=== PATIENT | male | born 1940 | race Caucasian/White ===

== ENCOUNTER 2017-07-01 11:28 | Observation (INO) | payer MEDICARE ==
[2017-07-01 12:41] LABS: Hemoglobin 16.3 g/dL (14.0-18.0); Mean Corpuscular HGB CONC 33.9 g/dL (32.0-36.0); Mean Corpuscular Hemoglobin 31.1 pg (27.0-31.0); Mean Corpuscular Volume 91.8 fl (80.0-94.0); Mean Platelet Volume 9.5 fL (7.4-10.4); Platelet Count 156 thou/uL (130-400); RBC Distribution Width 13.3 % (11.5-14.5); Red Blood Cell (RBC) Count 5.23 mill/uL (4.70-6.10); White Blood Cell (WBC) Count 12.8 thou/uL (4.8-10.8)
[2017-07-01] MEDS ORDERED: Morphine 4 MG/ML VIAL ONE ×2 (12:47→15:00)
[2017-07-01 12:50] LABS: INR-International Normal Ratio 1.7; Prothrombin Time 20.1 SEC (12.0-14.7)
[2017-07-01 12:51] LABS: PTT 42.1 SEC (22.9-36.1)
[2017-07-01 13:03] LABS: Band 1 % (5-11); Lymphocytes 13 % (21-51); MDiff Complete? YES; Metamyelocyte 1 % (0-0); Monocytes 4 % (0-10); Neutrophil 71 % (42-75); Reactive Lymphocytes 9 % (0-10)
[2017-07-01 13:04] LABS: ALT (SGPT) 29 U/L (8-55); AST (SGOT) 30 U/L (5-34); Albumin 4.3 g/dL (3.4-4.8); Alkaline Phosphatase 90 U/L (40-150); Anion Gap 15 mmol/L (10-20); BUN (Urea Nitrogen) 18 mg/dL (8.4-25.7); Bilirubin, Total 1.2 mg/dL (0.2-1.2); CK (CPK) 71 U/L (30-200); Calc. Creatinine Clearance 0 mL/min (70-130); Calcium 10.3 mg/dL (7.8-10.44); Carbon Dioxide 25 mmol/L (23-31); Chloride 97 mmol/L (98-107); Estimated GFR-MDRD 78; Globulin 3.7 g/dL (2.4-3.5); Glucose 69 mg/dL (83-110); Potassium 4.6 mmol/L (3.5-5.1); Sodium 132 mmol/L (136-145)
[2017-07-01] MEDS ORDERED: Lidocaine 2% 10 ML INJ ONE (13:41)
[2017-07-01] MEDS ORDERED: Lidocaine 4% Topical Sol 50 ML BOT ONE (13:42)
[2017-07-01] MEDS ORDERED: Lidocaine 1% PF 5 ML VIAL ONE (13:43)
--- NOTE | 2017-07-01 13:49 | RAD ---
RIGHT KNEE FOUR VIEWS: History: Right knee pain and swelling. FINDINGS: Degenerative changes are present. Chondrocalcinosis is noted. No fracture, dislocation, or bony destr uction is identified. There is fullness in the suprapatellar pouch suspicious for joint effusion. POS: [facility]
--- NOTE | 2017-07-01 14:19 | RAD ---
RADIOGRAPH LUMBAR SPINE 2 VIEWS: HISTORY: 76-year-old female with nontraumatic bilateral lumbar radiculopathy. COMPARISON: Color Printer Operator views of the lumbar spine for the cervical myelogram of 08-09-14. FINDINGS: There are five lumbar type vertebrae. No scoliosis. Vertebral body heights are maintained. At L3-4 th ere is mild to moderate disc space narrowing, and degenerative retrolisthesis of L3 on L4. This retro listhesis is slightly worse now compared to the previous. The rest of the disc spaces are maintained. There are degenerative facet changes at lower levels. IMPRESSION: 1. Moderate degenerative disc disease at L3-4, slightly worse compared to 2015. 2. Facet osteoarthrosis at lower levels (L4-5 and L5-S1). ELAINE POS: [facility]
[2017-07-01] MEDS ORDERED: HYDROcodone/Acetaminophen 5/325 mg Tablet ONE (15:00)
--- NOTE | 2017-07-01 16:08 | PDOC.FPRHP ---
- History of Present Illness Chief Complaint: knee pain History of Present Illness: 76 y/o M presents for evaluation of Right knee and low back pain that started Friday. Notes went to the Med on Friday. Was given some muscle relaxers. However , pain in right knee worsened and unable to ambulate 2/2 this. Denies any fevers , chills, numbness, tingling, fecal/urinary incontinence or saddle anesthesia associated with this. Hx of gout in big toe 7-8 years ago. Not on any medications for this currently. Reports last BM friday. Denies any falls/ trauma associated w/ onset. No alcohol use. Diet high in red meat. Denies fever , chills, sweats, numbness, tingling, nausea, vomiting, diarrhea. Discussed code status with patient. Wishes to be DNR status. ED Course: Pt given morphine and norco for pain in ER. Additionally knee aspiration performed, results pending. - Allergies/Adverse Reactions Allergies Allergy/AdvReac Type Severity Reaction Status Date / Time No Known Allergies Allergy Verified 07/01/17 17:09 - Home Medications Medication Instructions Recorded Confirmed Type Digoxin [Lanoxin] 0.25 mg PO DAILY 08/08/14 07/01/17 History Diltiazem HCl [Cartia XT] 360 mg PO DAILY 08/08/14 07/01/17 History Insulin Glargine [Lantus] 0 units SC DAILY 08/08/14 07/01/17 History Liraglutide [Victoza 2-Jermaine] 1.8 mg SC DAILY 08/08/14 08/08/14 History Simvastatin [Zocor] 10 mg PO HS 08/08/14 07/01/17 History Sotalol HCl [Sotalol] 160 mg PO BID 08/08/14 07/01/17 History Warfarin Sodium 5 mg PO DAILY 08/08/14 07/01/17 History sitaGLIPtin Phosphate [Januvia] 100 mg PO DAILY 08/08/14 07/01/17 History Pregabalin [Lyrica] 50 mg PO BID 07/01/17 07/01/17 History Valsartan/Hydrochlorothiazide 1 each PO DAILY 07/01/17 07/01/17 History [Diovan Hct 160-12.5 mg Tab] Comments: Not an updated medicine list. Nurse to med reconcile when admitted. - History PMHx: CAD w/ stents x8 Hx of [facility] in 1993 hx of gout HTN PSHx: Appendectomy Pacemaker placement x 5 Tonsillectomy FHx: DM - grandmother Social: Former smoker 1 ppd x 25 years Minimal EtOH use Denies illicit drugs - Review of Systems General: denies: fever/chills Eyes: denies: eye pain, vision changes ENT: denies: nasal congestion, rhinorrhea Respiratory: denies: cough, shortness of breath Cardiovascular: denies: chest pain, palpitation Gastrointestinal: denies: nausea, vomiting Genitourinary: denies: incontinence, dysuria Skin: denies: rashes Musculoskeletal: reports: pain, tenderness Neurological: reports: numbness (numbness left leg knee down to ankle chronic 2/ 2 bone spur L4) Psychological: denies: anxiety, depression - Vital signs BP: [] HR: [] RR: [] Tmax: [] Pox: []% on [] Wt: [] - Physical Exam Constitutional: NAD, awake, alert and oriented, well developed HEENT: normocephalic and atraumatic, conjunctiva clear, no scleral icterus, grossly normal hearing Neck: trachea midline, no JVD, no thyromegaly Chest: no lesions Heart: RRR, normal S1/S2, no murmurs/rubs/gallops, pulses present Lungs: CTAB, no respiratory distress, good air movement, no rales/rhonchi, no wheezing Abdomen: soft, non-tender, bowel sounds present, no masses/distention Musculoskeletal: other (edematous, warm rt knee joint with fluctuance and limited passive and active ROM) Neurological: no focal deficit, other (Diminished sensation LLE, chronic and unchanged from baseline) Skin: no rash/lesions, good turgor, no jaundice Heme/Lymphatic: no unusual bruising or bleeding, no purpura Psychiatric: normal mood and affect FMR H&P: Results - Labs Result Diagrams: 07/01/17 12:31 07/01/17 12:31 Lab results: WBC 12.8 thou/uL (4.8-10.8) H 07/01/17 12:31 Hgb 16.3 g/dL (14.0-18.0) 07/01/17 12:31 Hct 48.0 % (42.0-52.0) 07/01/17 12:31 MCV 91.8 fl (80.0-94.0) 07/01/17 12:31 Plt Count 156 thou/uL (130-400) 07/01/17 12:31 Band Neuts % (Manual) 1 % (5-11) L 07/01/17 12:31 ESR Westergren 54 mm/hr (Less than 20) 07/01/17 12:31 Sodium 132 mmol/L (136-145) L 07/01/17 12:31 Potassium 4.6 mmol/L (3.5-5.1) 07/01/17 12:31 Chloride 97 mmol/L (98-107) L 07/01/17 12:31 Carbon Dioxide 25 mmol/L (23-31) 07/01/17 12:31 BUN 18 mg/dL (8.4-25.7) 07/01/17 12:31 Creatinine 0.94 mg/dL (0.6-1.3) 07/01/17 12:31 Glucose 69 mg/dL (83-110) L 07/01/17 12:31 Calcium 10.3 mg/dL (7.8-10.44) 07/01/17 12:31 Total Bilirubin 1.2 mg/dL (0.2-1.2) 07/01/17 12:31 AST 30 U/L (5-34) 07/01/17 12:31 ALT 29 U/L (8-55) 07/01/17 12:31 Alkaline Phosphatase 90 U/L (40-150) 07/01/17 12:31 Creatine Kinase 71 U/L (30-200) 07/01/17 12:31 C-Reactive Protein 13.54 mg/dL (= or < 0.5) H 07/01/17 12:30 Serum Total Protein 8.0 g/dL (5.8-8.1) 07/01/17 12:31 Albumin 4.3 g/dL (3.4-4.8) 07/01/17 12:31 - Radiology Interpretation Other Status: image reviewed by me, report reviewed by me Additional comment: XR Knee: No bony erosion or evidence of osteo. Possible effusion. Lumbar Spine X-ray: DJD of lumbar spine worse since 2014; facet arthritis of L4- 5/L5-S1 FMR H&P: A/P - Problem List (1) Acute gout Current Visit: Yes Status: Acute Code(s): M10.9 - GOUT, UNSPECIFIED Qualifiers: Gout site: knee Gout etiology: unspecified cause Laterality: right Qualified Code(s): M10.9 - Gout, unspecified (2) HTN (hypertension) Current Visit: Yes Status: Acute Code(s): I10 - ESSENTIAL (PRIMARY) HYPERTENSION Qualifiers: Hypertension type: essential hypertension Qualified Code(s): I10 - Essential (primary) hypertension (3) HLD (hyperlipidemia) Current Visit: Yes Status: Acute Code(s): E78.5 - HYPERLIPIDEMIA, UNSPECIFIED Qualifiers: Hyperlipidemia type: unspecified Qualified Code(s): E78.5 - Hyperlipidemia , unspecified (4) DM II (diabetes mellitus, type II), controlled Current Visit: Yes Status: Acute Code(s): E11.9 - TYPE 2 DIABETES MELLITUS WITHOUT COMPLICATIONS Qualifiers: Diabetes mellitus senior pastor insulin use: with senior pastor use Diabetes mellitus complication status: without complication Qualified Code(s): E11.9 - Type 2 diabetes mellitus without complications; Z79.4 - auditor supervisor (current) use of insulin; Z79.4 - penitentiary (current) use of insulin; Z79.4 - auditor supervisor ( current) use of insulin; Z79.4 - penitentiary (current) use of insulin (5) Peripheral neuropathy Current Visit: Yes Status: Acute Code(s): G62.9 - POLYNEUROPATHY, UNSPECIFIED - Plan 1) Acute gout rt knee -esr and crp elevated, mildly elevated wbc's possibly 2/2 acute stress response. No left shift, repeat am CBC -will treat with colchicine, naprosyn and tylenol for pain control. Morphine for severe breakthrough pain - hold thiazide diuretic for now as it can worsen hyperuricemia - check serum uric acid level - pt ot consulted eval/treat - attempted to aspirate joint in ER w/o success -consider another attempt for therapeutic and diagnostic purposes considering the elevated ESR and CRP 2) HTN: -continue home meds 3)HLD: -continue home meds 4)DMII: -levemir 60 U BID - accuchecks ACHS - Aggressive SSI -continue other home medications 5) Peripheral neuropathy: -cont home meds 6) CAD w/ h/o cardiac pacer - continue home medications - INR sub-therapeutic, continue to monitor 7) PPX: Lovenox and pepcid for PE and GI ppx, respectively 8) Code status: DNR -discussed code status with pt and informed of other options, he desires to be DNR. FMR H&P: Upper Level - Pertinent history 76 y/o M presents R- knee and low back pain that started Friday. Seen at [facility] on Friday and given muscle relaxers for low back strain. Reports no significant relief. Pain in right knee became worse and he was unable to ambulate over the past day because of this. Denies any recent fevers, chills, numbness, tingling, fecal/urinary incontinence or saddle anesthesia. Hx of gout in his big toe 7 or 8 years ago. Not on any ppx medications for gout. Denies any falls/trauma associated w/ onset. No alcohol use. Denies fever, chills, sweats, numbness, tingling, nausea, vomiting, diarrhea. - Pertinent findings Pertinent PE: Right knee w/ effusion and warm to touch. Pain w/ passive ROM and palpation of joint space. No active drainage. Vital Signs WNL, afebrile. No signficant leukocytosis. - Plan Date/Time: 07/01/17 1607 I, Dr. Oneal Gutierrez, have evaluated this patient and agree with findings/plan as outlined by market research intern resident. Pertinent changes/additions are listed here. A/P: 1. Acute gout flare: - Will treat w/ colchicine and naprosyn 2/2 significant cardiac hx. - PO meds for pain control. IV morphine for breakthrough - Check uric acid level. Hold Thiazide diuretic in setting of acute gout flare. - Consult PT/OT for eval and treatment pending placement at [facility] which he has already been accepted to and currently awaiting available bed. 2. HTN: -continue home meds 3. HLD: -continue home meds 4. DMII: -levemir 60 U BID as he is on an unusual regimen w/ lantus 100 units BID - accuchecks ACHS - Aggressive SSI -continue other home medications - Will titrate levemir dosage as needed 5. Peripheral neuropathy: -cont home meds 6. CAD w/ h/o cardiac pacer - continue home medications - INR sub-therapeutic, continue to monitor Code status: DNR PPX: Warfarin Attending Addendum - Attending Addendum Date/Time: 07/01/172009 I personally evaluated the patient and discussed the management with Dr. Mckeon and Brenda. I agree with and repeated the History, Examination, Assessment and Plan documented above with any addition or exceptions noted below. It seems tap was unsuccessful, but feels like fluid present on exam. Will consider repeat attempt +/- ultrasound guidance for diagnostic clarity and therapeutic benefit.
[2017-07-01] MEDS ORDERED: Ondansetron ODT 4 MG TAB PO PRN (16:56)
[2017-07-01] MEDS ORDERED: Dextrose 5% in Water 1,000 ML IV PRN (16:56)
[2017-07-01] MEDS ORDERED: Acetaminophen 325 MG TAB PO PRN ×2 (16:56→17:13)
[2017-07-01] MEDS ORDERED: Milk Of Magnesia 30 ML UDCUP PO PRN (16:56)
[2017-07-01] MEDS ORDERED: Dextrose 50% Abboject 50 ML SYRINGE SLOW IVP PRN (16:56)
[2017-07-01 17:05] VITALS: BMI 33.9
[2017-07-01] MEDS ORDERED: HumaLOG 300 UNITS/3 ML VIAL SC PRN (17:09)
[2017-07-01] MEDS ORDERED: Ondansetron HCl/PF 4 MG/2 ML Vial IVP PRN (17:13)
[2017-07-01] MEDS ORDERED: Ondansetron ODT 4 MG TAB SL PRN (17:13)
[2017-07-01] MEDS: Sodium Chloride 0.9% 1,000 ML IV SCH (17:53)
[2017-07-01] MEDS ORDERED: Naproxen 500 MG TAB PO PRN (18:03)
[2017-07-01] MEDS ORDERED: Naproxen 500 MG TAB PO SCH (18:15)
[2017-07-01] MEDS: Morphine 2 MG/ML SYRINGE SLOW IVP PRN (18:19)
[2017-07-01] MEDS ORDERED: Lidocaine 1% w/Epinephrine 1:100K 20 ML VIAL FS SCH (20:15)
[2017-07-01] MEDS ORDERED: Morphine 2 MG/ML SYRINGE SLOW IVP SCH (20:30)
[2017-07-01] MEDS ORDERED: Gabapentin 300 MG CAP PO SCH ×2 (21:00→22:30)
[2017-07-01] MEDS ORDERED: INSULIN DETEMIR SC SCH ×2 (21:00→22:30)
[2017-07-01] MEDS ORDERED: ADMIXTURE FEE SC SCH ×2 (21:00→22:30)
[2017-07-01] MEDS ORDERED: Warfarin Sodium 5 MG TAB PO SCH (21:30)
[2017-07-01] MEDS: Cholecalciferol (Vitamin D3) 400 UNITS TAB PO SCH (22:21)
[2017-07-01] MEDS: Colchicine 0.6 MG TAB PO SCH (22:22)
[2017-07-01] MEDS: Sotalol HCl 80 MG TAB PO SCH (22:22)
[2017-07-01] MEDS: Docusate 100 MG CAP PO SCH (22:23)
[2017-07-01] MEDS: Famotidine 20 MG TAB PO SCH (22:23)
[2017-07-01] MEDS: Simvastatin 5 MG TAB PO SCH (22:23)
[2017-07-01 22:37] LABS: BF Color Yellow; Body Fluid Source SYNOVIAL FLUID; Clarity Hazy (Clear)
[2017-07-01 22:38] LABS: RBC Background Count 0.003; RBC Count-Automated 28000 /cumm; Tube # EDTA; WBC/NonHematic-Auto 33000 /cumm
[2017-07-01 23:03] LABS: BF Segmented Neutrophils 90 %; Cell Count Non Hematic 7 %; Lymphocytes 3 %
[2017-07-02] MEDS: Sodium Chloride 0.9% 1,000 ML IV SCH ×4 (01:04→23:42)
[2017-07-02] MEDS: Morphine 2 MG/ML SYRINGE SLOW IVP PRN ×2 (01:22→11:47)
--- NOTE | 2017-07-02 03:30 | PDOC.OP ---
Operative Note - Operative Note Operative Note: Procedure: Arthrocentesis Risks and benefits discussed with patient and verbal consent obtained. Ultrasound was used to locate a large pocket of fluid on the suprapatellar lateral aspect of the right knee. The area was then prepped with betadine solution in the usual sterile fashion. 5ml of 1% Lidocaine with epinephrine injected for local anesthesia. Under ultrasound guidance, an 18 gauge needle then inserted at the same site and fluid was drawn into sterile 30ml syringe x 2. Yellow cloudy gelatinous fluid was removed from the joint space and sent to the lab for analysis to include cell count, gram stain, culture and crystal studies. An additional 5 ml of lidocaine was then injected for pain relief into the joint space. The patient tolerated the procedure well without complications. Amount of fluid removed: 45 ml Estimated Blood Loss: trace Complications: None. The attending, Dr. Joel Wisdom, was present throughout the entire procedure.
[2017-07-02 05:00] LABS: INR-International Normal Ratio 1.8; Prothrombin Time 21.8 SEC (12.0-14.7)
[2017-07-02 05:11] LABS: Anion Gap 12 mmol/L (10-20); BUN (Urea Nitrogen) 17 mg/dL (8.4-25.7); Calc. Creatinine Clearance 143 mL/min (70-130); Carbon Dioxide 22 mmol/L (23-31); Chloride 98 mmol/L (98-107); Estimated GFR-MDRD Greater than 90; Glucose 187 mg/dL (83-110); Potassium 4.5 mmol/L (3.5-5.1); Sodium 127 mmol/L (136-145)
[2017-07-02 05:24] LABS: Band 5 % (5-11); Hemoglobin 13.7 g/dL (14.0-18.0); Lymphocytes 16 % (21-51); MDiff Complete? YES; Mean Corpuscular HGB CONC 32.5 g/dL (32.0-36.0); Mean Corpuscular Hemoglobin 30.5 pg (27.0-31.0); Mean Corpuscular Volume 93.6 fl (80.0-94.0); Mean Platelet Volume 9.6 fL (7.4-10.4); Metamyelocyte 2 % (0-0); Monocytes 16 % (0-10); Neutrophil 57 % (42-75); PLT Morphology Comment Appears Adequate; Platelet Count 136 thou/uL (130-400); RBC Distribution Width 13.3 % (11.5-14.5); RBC Morphology Normal; Reactive Lymphocytes 4 % (0-10); Red Blood Cell (RBC) Count 4.48 mill/uL (4.70-6.10); White Blood Cell (WBC) Count 9.9 thou/uL (4.8-10.8)
[2017-07-02] MEDS: ADMIXTURE FEE SC SCH ×2 (08:43→21:22)
[2017-07-02] MEDS: INSULIN DETEMIR SC SCH ×2 (08:43→21:22)
[2017-07-02] MEDS: Docusate 100 MG CAP PO SCH ×2 (08:44→21:25)
[2017-07-02] MEDS: Sotalol HCl 80 MG TAB PO SCH ×2 (08:44→21:23)
[2017-07-02] MEDS: Digoxin 0.25 MG TAB PO SCH (08:44)
[2017-07-02] MEDS: Colchicine 0.6 MG TAB PO SCH (08:44)
[2017-07-02] MEDS: Gabapentin 300 MG CAP PO SCH ×2 (08:44→21:24)
[2017-07-02] MEDS: metFORMIN 850 MG TAB PO SCH ×2 (08:44→16:51)
[2017-07-02] MEDS: Alogliptin 25 MG TAB PO SCH (08:44)
[2017-07-02] MEDS: Famotidine 20 MG TAB PO SCH ×2 (08:44→21:24)
[2017-07-02] MEDS: Valsartan 80 MG TAB PO SCH (08:44)
[2017-07-02] MEDS: Magnesium Oxide 400 MG TAB PO SCH (08:45)
[2017-07-02] MEDS ORDERED: Hydrochlorothiazide 25 MG TAB PO SCH (09:00)
[2017-07-02] MEDS ORDERED: INSULIN DETEMIR SC SCH (09:00)
[2017-07-02] MEDS ORDERED: Enoxaparin Sodium 40 MG/0.4 ML SYRINGE SC SCH (09:00)
[2017-07-02] MEDS ORDERED: Cholecalciferol (Vitamin D3) 400 UNITS TAB PO SCH (09:00)
[2017-07-02] MEDS ORDERED: ADMIXTURE FEE SC SCH (09:00)
[2017-07-02] MEDS ORDERED: Alogliptin 25 MG TAB PO SCH (09:00)
[2017-07-02] MEDS ORDERED: predniSONE 20 MG TAB PO SCH (10:15)
--- NOTE | 2017-07-02 11:27 | PDOC.FM ---
- Subjective Subjective: No acute events overnight. Pt had arthrocentesis yesterday with some mild relief of symptoms. He does reports new left wrist pain and limited range of motion. His knee pain is mildly improved. - Objective Vital Signs & Weight: Vital Signs (12 hours) Temp Pulse Resp BP Pulse Ox 07/02/17 11:17 98.8 F 60 18 144/74 H 92 L 07/02/17 08:44 64 07/02/17 08:00 98.1 F 64 18 07/02/17 07:39 98.1 F 60 18 124/71 93 L 07/02/17 04:00 98.6 F 60 16 124/73 92 L 07/02/17 00:00 98.6 F 60 16 143/73 H 92 L Result Diagrams: 07/02/17 04:22 07/02/17 04:22 <Alek Mckeon - Last Filed: 07/02/17 11:24> - Objective Vital Signs & Weight: Vital Signs (12 hours) Temp Pulse Resp BP Pulse Ox 07/02/17 11:17 98.8 F 60 18 144/74 H 92 L 07/02/17 08:44 64 07/02/17 08:00 98.1 F 64 18 07/02/17 07:39 98.1 F 60 18 124/71 93 L 07/02/17 04:00 98.6 F 60 16 124/73 92 L Result Diagrams: 07/02/17 04:22 07/02/17 04:22 <Nohemi Jasso - Last Filed: 07/02/17 14:57> Phys Exam - Physical Examination Constitutional: NAD HEENT: PERRLA, sclera anicteric Neck: no nodes, no JVD Respiratory: no wheezing, no rales, no rhonchi, clear to auscultation bilateral Cardiovascular: RRR, no significant murmur, no rub Gastrointestinal: soft, non-tender, no distention, positive bowel sounds Musculoskeletal: pulses present, edema present edematous rt knee with effusion. No erythema. Neurological: non-focal, normal sensation Psychiatric: normal affect Skin: no rash <Alek Mckeon - Last Filed: 07/02/17 11:24> Dx/Plan (1) Acute gout Code(s): M10.9 - GOUT, UNSPECIFIED Status: Acute QualifierTitle: Gout site: knee Gout etiology: unspecified cause Laterality: right Qualified Code(s): M10.9 - Gout, unspecified (2) HTN (hypertension) Code(s): I10 - ESSENTIAL (PRIMARY) HYPERTENSION Status: Acute QualifierTitle: Hypertension type: essential hypertension Qualified Code( s): I10 - Essential (primary) hypertension (3) HLD (hyperlipidemia) Code(s): E78.5 - HYPERLIPIDEMIA, UNSPECIFIED Status: Acute QualifierTitle: Hyperlipidemia type: unspecified Qualified Code(s): E78.5 - Hyperlipidemia, unspecified (4) DM II (diabetes mellitus, type II), controlled Code(s): E11.9 - TYPE 2 DIABETES MELLITUS WITHOUT COMPLICATIONS Status: Acute QualifierTitle: Diabetes mellitus fpc insulin use: with termite technician use Diabetes mellitus complication status: without complication Qualified Code(s): E11.9 - Type 2 diabetes mellitus without complications; Z79.4 - snf (current) use of insulin; Z79.4 - snf (current) use of insulin; Z79.4 - continuous churn buttermaker (current) use of insulin; Z79.4 - continuous churn buttermaker (current) use of insulin (5) Peripheral neuropathy Code(s): G62.9 - POLYNEUROPATHY, UNSPECIFIED Status: Acute - Plan Plan: 1) Acute gout rt knee -will use one time dose of naproxen to try and achieve some relief. Pt is on coumadin; however, has sub-therapeutic INR, ok to give. -Given pts duration of symptoms, will dc colchicine and switch to prednisone 40mg/day with eventual taper -no evidence of infection - monitor 2) HTN: -dc HCTZ - monitor pressures 3)HLD: -continue home meds 4)DMII: -levemir 60 U BID - accuchecks ACHS - Aggressive SSI -continue other home medications, no changes 5) Peripheral neuropathy: -cont home meds, no changes 6) CAD w/ h/o cardiac pacer and afib - continue home medications - INR sub-therapeutic, continue to monitor at current dose -pt reports last INR was 1.8 and no adjustments were made at that time. <Alek Mckeon - Last Filed: 07/02/17 11:24> Attending Addendum - Attending Addendum Date/Time: 07/02/17 1450 I personally evaluated the patient and discussed the management with Dr. Mckeon and Dr. Meyer I agree with the History, Examination, Assessment and Plan documented above with any addition or exceptions noted below. 76 yo male with HTN, DM, and CAD admitted for gout flare. Patient still with discomfort. Unable to ambulate at this time. Crystal studies positive for pseudogout. Patient started on colchicine but symptoms have been greater than 36 hours. Will start steroids. Consider joint injection. Would recommend holding NSAIDs due to bleed risk in conjunction with OAC and GI risk in conjunction with oral steroids. Monitor glucose closely. Treat pain with conservative measures along with opiates. Jamal <Nohemi Jasso - Last Filed: 07/02/17 14:57>
[2017-07-02] MEDS: HumaLOG 300 UNITS/3 ML VIAL SC PRN ×2 (11:48→16:52)
[2017-07-02 12:40] LABS: ANA Symphony (Qualitative) Negative (Negative); dsDNA IgG Antibody 2.9 IU/mL (<10 Negative)
[2017-07-02] MEDS: Warfarin Sodium 5 MG TAB PO SCH (16:51)
[2017-07-02] MEDS: Simvastatin 5 MG TAB PO SCH (21:23)
[2017-07-02] MEDS: Cholecalciferol (Vitamin D3) 400 UNITS TAB PO SCH (21:25)
[2017-07-02] MEDS ORDERED: Mag-Al 1200 mg/1200 mg/30 ML UDCUP PO PRN (22:56)
[2017-07-02] MEDS ORDERED: Calcium Carbonate 500 MG ChewTAB PO PRN (22:56)
[2017-07-03 04:57] LABS: INR-International Normal Ratio 2.1; Prothrombin Time 24.2 SEC (12.0-14.7)
[2017-07-03] MEDS: Digoxin 0.25 MG TAB PO SCH (07:58)
[2017-07-03] MEDS: Alogliptin 25 MG TAB PO SCH (07:58)
[2017-07-03] MEDS: Gabapentin 300 MG CAP PO SCH ×2 (07:58→21:13)
[2017-07-03] MEDS: Docusate 100 MG CAP PO SCH ×2 (07:59→21:13)
[2017-07-03] MEDS: Sotalol HCl 80 MG TAB PO SCH ×2 (07:59→21:12)
[2017-07-03] MEDS: predniSONE 20 MG TAB PO SCH ×2 (07:59→08:00)
[2017-07-03] MEDS: Famotidine 20 MG TAB PO SCH ×2 (07:59→21:14)
[2017-07-03] MEDS: Magnesium Oxide 400 MG TAB PO SCH (07:59)
[2017-07-03] MEDS: metFORMIN 850 MG TAB PO SCH ×2 (08:00→16:37)
[2017-07-03] MEDS: Sodium Chloride 0.9% 1,000 ML IV SCH (08:01)
[2017-07-03] MEDS: INSULIN DETEMIR SC SCH ×2 (08:05→21:14)
[2017-07-03] MEDS: ADMIXTURE FEE SC SCH ×2 (08:05→21:14)
--- NOTE | 2017-07-03 09:40 | PDOC.FM ---
- Subjective Subjective: No acute events overnight. Pt reports his knee and wrist are feeling much better today. - Objective Vital Signs & Weight: Vital Signs (12 hours) Temp Pulse Resp BP BP Pulse Ox 07/03/17 08:00 98.0 F 60 18 146/78 H 94 L 07/03/17 07:59 63 146/78 H 07/03/17 07:58 63 07/03/17 04:14 97.8 F 63 20 131/65 92 L Result Diagrams: 07/02/17 04:22 07/02/17 04:22 <Alek Mckeon - Last Filed: 07/03/17 09:38> - Objective Vital Signs & Weight: Vital Signs (12 hours) Temp Pulse Resp BP Pulse Ox 07/04/17 12:00 98.1 F 60 20 145/72 H 93 L 07/04/17 09:29 61 07/04/17 09:27 60 07/04/17 08:00 97.9 F 61 22 H 196/79 H 92 L Result Diagrams: 07/02/17 04:22 07/02/17 04:22 <Nohemi Jasso - Last Filed: 07/04/17 17:36> Phys Exam - Physical Examination Constitutional: NAD HEENT: PERRLA, moist MMs, sclera anicteric Neck: no nodes, no JVD, supple Respiratory: no wheezing, no rales, no rhonchi, clear to auscultation bilateral Cardiovascular: RRR, no significant murmur, no rub Gastrointestinal: soft, non-tender, no distention, positive bowel sounds Musculoskeletal: pulses present edematous rt knee, improved from yesterday. Increased AROM l wrist r knee Neurological: non-focal, normal sensation, moves all 4 limbs Psychiatric: normal affect Skin: no rash <Alek Mckeon - Last Filed: 07/03/17 09:38> Dx/Plan (1) Acute gout Code(s): M10.9 - GOUT, UNSPECIFIED Status: Acute QualifierTitle: Gout site: knee Gout etiology: unspecified cause Laterality: right Qualified Code(s): M10.9 - Gout, unspecified (2) HTN (hypertension) Code(s): I10 - ESSENTIAL (PRIMARY) HYPERTENSION Status: Acute QualifierTitle: Hypertension type: essential hypertension Qualified Code( s): I10 - Essential (primary) hypertension (3) HLD (hyperlipidemia) Code(s): E78.5 - HYPERLIPIDEMIA, UNSPECIFIED Status: Acute QualifierTitle: Hyperlipidemia type: unspecified Qualified Code(s): E78.5 - Hyperlipidemia, unspecified (4) DM II (diabetes mellitus, type II), controlled Code(s): E11.9 - TYPE 2 DIABETES MELLITUS WITHOUT COMPLICATIONS Status: Acute QualifierTitle: Diabetes mellitus exterminator insulin use: with exterminator use Diabetes mellitus complication status: without complication Qualified Code(s): E11.9 - Type 2 diabetes mellitus without complications; Z79.4 - prison (current) use of insulin; Z79.4 - intermediate designer (current) use of insulin; Z79.4 - prison (current) use of insulin; Z79.4 - intermediate designer (current) use of insulin (5) Peripheral neuropathy Code(s): G62.9 - POLYNEUROPATHY, UNSPECIFIED Status: Acute - Plan Plan: 1) Acute gout rt knee -switched to oral prednisone and has improved symptoms since yesterday. Will cont prednisone -crystals resulted pseudogout, will cont to hold HCTZ as can cause hyperclcemia possibly worsening pseudogout -culture is negative @ 12 hours, may benefit from IA corticosteroid injection 2) HTN: -dc HCTZ - monitor pressures, stable 3)HLD: -continue home meds 4)DMII: -levemir 60 U BID - accuchecks ACHS - Aggressive SSI -continue other home medications, no changes -bs stable 5) Peripheral neuropathy: -cont home meds, no changes, stable 6) CAD w/ h/o cardiac pacer and afib - continue home medications - INR sub-therapeutic -pt reports last INR was 1.8 and no adjustments were made at that time. -most recent INR 2.1, will continue to monitor <Alek Mckeon - Last Filed: 07/03/17 09:38> Attending Addendum - Attending Addendum Date/Time: 07/04/17 0125 I personally evaluated the patient and discussed the management with Dr. Mckeon and Dr. Meyer I agree with the History, Examination, Assessment and Plan documented above with any addition or exceptions noted below. 76 yo male with HTN, DM, and CAD admitted for gout flare. Pain and swelling slowly improving. Still not able to ambulate. Patient leaves at home. Not able to care for himself acutely. Rehab placement pending. Jamal <Nohemi Jasso - Last Filed: 07/04/17 17:36>
[2017-07-03] MEDS: Valsartan 80 MG TAB PO SCH (10:39)
[2017-07-03] MEDS: Mag-Al 1200 mg/1200 mg/30 ML UDCUP PO SCH ×2 (11:09→16:37)
[2017-07-03] MEDS: Morphine 2 MG/ML SYRINGE SLOW IVP PRN ×2 (15:34→19:44)
[2017-07-03] MEDS: Warfarin Sodium 5 MG TAB PO SCH (16:36)
[2017-07-03] MEDS ORDERED: Clopidogrel Bisulfate 75 MG TAB ONE (20:46)
[2017-07-03] MEDS: Simvastatin 5 MG TAB PO SCH (21:13)
[2017-07-03] MEDS: Cholecalciferol (Vitamin D3) 400 UNITS TAB PO SCH (21:14)
[2017-07-04 04:39] LABS: INR-International Normal Ratio 2.4; Prothrombin Time 26.8 SEC (12.0-14.7)
[2017-07-04] MEDS ORDERED: VALSARTAN PO SCH (09:00)
[2017-07-04] MEDS ORDERED: [UNRECOGNIZED DRUG - OTHER] PO SCH (09:00)
[2017-07-04] MEDS ORDERED: Polyethylene Glycol 3350 17 GM Packet PO SCH (09:00)
[2017-07-04] MEDS ORDERED: Hydrochlorothiazide 25 MG TAB PO SCH (09:00)
[2017-07-04] MEDS ORDERED: Valsartan 80 MG TAB PO SCH (09:00)
[2017-07-04] MEDS ORDERED: HYDROCHLOROTHIAZIDE PO SCH (09:00)
[2017-07-04] MEDS: Digoxin 0.25 MG TAB PO SCH (09:27)
[2017-07-04] MEDS: Sotalol HCl 80 MG TAB PO SCH (09:29)
[2017-07-04] MEDS: Famotidine 20 MG TAB PO SCH (09:30)
[2017-07-04] MEDS: Alogliptin 25 MG TAB PO SCH (09:30)
[2017-07-04] MEDS: Gabapentin 300 MG CAP PO SCH (09:31)
[2017-07-04] MEDS: metFORMIN 850 MG TAB PO SCH (09:31)
[2017-07-04] MEDS: Docusate 100 MG CAP PO SCH (09:32)
[2017-07-04] MEDS: predniSONE 20 MG TAB PO SCH (09:32)
[2017-07-04] MEDS: Magnesium Oxide 400 MG TAB PO SCH (09:32)
[2017-07-04] MEDS: Mag-Al 1200 mg/1200 mg/30 ML UDCUP PO SCH ×2 (09:34→12:34)
[2017-07-04] MEDS: INSULIN DETEMIR SC SCH (09:38)
[2017-07-04] MEDS: ADMIXTURE FEE SC SCH (09:38)
--- NOTE | 2017-07-04 11:56 | PDOC.FM ---
- Subjective Subjective: No acute events overnight. Pt agreeable to inpatient rehab. He states his pain continues to improve. - Objective Vital Signs & Weight: Vital Signs (12 hours) Temp Pulse Resp BP Pulse Ox 07/04/17 09:29 61 07/04/17 09:27 60 07/04/17 08:00 97.9 F 61 22 H 196/79 H 92 L 07/04/17 04:00 98.2 F 61 18 165/84 H 92 L Result Diagrams: 07/02/17 04:22 07/02/17 04:22 <Alek Mckeon - Last Filed: 07/04/17 11:54> - Objective Vital Signs & Weight: Vital Signs (12 hours) Temp Pulse Resp BP Pulse Ox 07/04/17 12:00 98.1 F 60 20 145/72 H 93 L 07/04/17 09:29 61 07/04/17 09:27 60 07/04/17 08:00 97.9 F 61 22 H 196/79 H 92 L Result Diagrams: 07/02/17 04:22 07/02/17 04:22 <Nohemi Jasso - Last Filed: 07/04/17 17:38> Phys Exam - Physical Examination Constitutional: NAD HEENT: PERRLA, moist MMs, sclera anicteric Neck: no nodes, no JVD Respiratory: no wheezing, no rales, no rhonchi, clear to auscultation bilateral Cardiovascular: RRR, no significant murmur, no rub Gastrointestinal: soft, non-tender, positive bowel sounds Musculoskeletal: pulses present edema rt knee, improved from yesterday. Improved AROM Neurological: non-focal, moves all 4 limbs Psychiatric: normal affect Skin: no rash <Alek Mckeon - Last Filed: 07/04/17 11:54> Dx/Plan (1) Acute gout Code(s): M10.9 - GOUT, UNSPECIFIED Status: Acute QualifierTitle: Gout site: knee Gout etiology: unspecified cause Laterality: right Qualified Code(s): M10.9 - Gout, unspecified (2) HTN (hypertension) Code(s): I10 - ESSENTIAL (PRIMARY) HYPERTENSION Status: Acute QualifierTitle: Hypertension type: essential hypertension Qualified Code( s): I10 - Essential (primary) hypertension (3) HLD (hyperlipidemia) Code(s): E78.5 - HYPERLIPIDEMIA, UNSPECIFIED Status: Acute QualifierTitle: Hyperlipidemia type: unspecified Qualified Code(s): E78.5 - Hyperlipidemia, unspecified (4) DM II (diabetes mellitus, type II), controlled Code(s): E11.9 - TYPE 2 DIABETES MELLITUS WITHOUT COMPLICATIONS Status: Acute QualifierTitle: Diabetes mellitus terminal gauger supervisor insulin use: with group home use Diabetes mellitus complication status: without complication Qualified Code(s): E11.9 - Type 2 diabetes mellitus without complications; Z79.4 - terminal manager (current) use of insulin; Z79.4 - terminal manager (current) use of insulin; Z79.4 - detention (current) use of insulin; Z79.4 - terminal manager (current) use of insulin (5) Peripheral neuropathy Code(s): G62.9 - POLYNEUROPATHY, UNSPECIFIED Status: Acute - Plan Plan: 1) Acute gout rt knee -symptoms cont to improve. Pt is ideal candidate for inpatient rehab as he is on anticoag and lives alone at home -will plan for dc to inpt rehab today -DC with medrol dose pack and pt to complete 2) HTN: -resume hctz, discussed with pt risk/benefit and he will discuss with pcp 3)HLD: -continue home meds -dc today 4)DMII: -levemir 60 U BID - one episode of hypoglycemia, pt likely diet non compliant at home so may need adjustment of levemir while in rehab. DC today 5) Peripheral neuropathy: -cont home meds, no changes, stable 6) CAD w/ h/o cardiac pacer and afib - continue home medications - INR 2.4 -DC to rehab center, cont to monitor <Alek Mckeon - Last Filed: 07/04/17 11:54> Attending Addendum - Attending Addendum Date/Time: 07/04/17 2404 I personally evaluated the patient and discussed the management with Dr. Mckeon and Dr. Meyer I agree with the History, Examination, Assessment and Plan documented above with any addition or exceptions noted below. 76 yo male with HTN, DM, pAfib, and CAD admitted for pseudogout flare. Swelling continues to improve. Pain improving. Still not able to ambulate today. Rehab bed available. Will d/c today. Need to continue to trend INR. Has been increasing slowly since admission. Monitor DM due to steroid use to treat flare. Jamal <Nohemi Jasso - Last Filed: 07/04/17 17:38>
[2017-07-04] MEDS: Morphine 2 MG/ML SYRINGE SLOW IVP PRN (12:34)
[2017-07-04 14:21] VITALS: BP 145/72; TEMP 98.1
== END 2017-07-04 15:50 ==
LOC: ERS 11:28 → T4-A 16:40
PROVIDERS: ADMIT Student in an Organized Health Care Education/Training Program; ATTEND Student in an Organized Health Care Education/Training Program
PROC: 0S9C3ZZ Drainage of Right Knee Joint, Percutaneous Approach (ICD-10-PCS; principal; 2017-07-01)
DX: M25.461 Effusion, right knee (principal); I25.10 Atherosclerotic heart disease of native coronary artery without angina pectoris; I25.2 Old myocardial infarction; M10.9 Gout, unspecified; I10 Essential (primary) hypertension; E78.5 Hyperlipidemia, unspecified; E11.42 Type 2 diabetes mellitus with diabetic polyneuropathy; Z66 Do not resuscitate; Z87.891 Personal history of nicotine dependence; Z79.4 Long term (current) use of insulin; Z79.01 Long term (current) use of anticoagulants; Z79.52 Long term (current) use of systemic steroids; Z79.899 Other long term (current) drug therapy
CPT/HCPCS: 20610 ×2; 72100; 73564; 80048; 80053; 82550; 82962 ×4; 84550; 85025 ×2; 85610 ×4; 85652; 85730; 86038; 86140; 86225; 87070; 87205; 89051; 89060; 96361 ×4; 96374; 96376 ×5; 97116 ×2; 97139 ×3; 97530; 99284; G0378 ×2; G8978; G8979; G8987; G8988; 36415; 36416; 85060; A4216; J1815; J2001; J2270; J7506

== ENCOUNTER 2021-08-08 10:59 | Outpatient (CLI) | payer MEDICARE ==
[2021-08-08 12:34] LABS: Mean Corpuscular HGB CONC 33.1 g/dL (32.0-36.0); Mean Corpuscular Volume 90.6 fl (81.2-95.1); Mean Platelet Volume 11.5 fl (7.4-10.4); Platelet Count 183 10x3/uL (150-450); RBC Distribution Width 13.7 % (11.5-14.5); Red Blood Cell (RBC) Count 4.67 10x6/uL (4.32-5.72); White Blood Cell (WBC) Count 9.3 10x3/uL (3.5-10.5)
[2021-08-08 12:43] LABS: PTT 30.6 sec (22.0-33.0); Prothrombin Time 11.3 sec (9.5-12.1)
[2021-08-08 12:47] LABS: Anion Gap 15 mmol/L (10-20); BUN (Urea Nitrogen) 14 mg/dL (8.4-25.7); Calc. Creatinine Clearance 0 mL/min (70-130); Calcium 9.3 mg/dL (7.8-10.44); Carbon Dioxide 24 mmol/L (23-31); Chloride 102 mmol/L (98-107); Glucose 160 mg/dL (83-110); Potassium 4.6 mmol/L (3.5-5.1); Sodium 136 mmol/L (136-145)
[2021-08-08 21:15] LABS: SARS-CoV-2 PCR by NAA Not Detected (NotDetected)
== END 2021-08-08 11:00 | disposition home or self-care (01) ==
LOC: LABBT 10:59
PROVIDERS: ATTEND Internal Medicine Cardiovascular Disease
DX: Z01.812 Encounter for preprocedural laboratory examination (principal); Z51.81 Encounter for therapeutic drug level monitoring; I48.91 Unspecified atrial fibrillation; I51.9 Heart disease, unspecified; Z79.01 Long term (current) use of anticoagulants; Z20.822 Contact with and (suspected) exposure to COVID-19
CPT/HCPCS: 80048; 85027; 85610; 85730; U0003; U0005

== ENCOUNTER 2021-08-13 09:20 | Observation (INO) | payer MEDICARE ==
[2021-08-13] MEDS ORDERED: Heparin 25,000 units/D5W 500 ML ONE (10:19)
[2021-08-13] MEDS ORDERED: Heparin 10,000 UNITS/ 10 ML VIAL ONE (10:19)
[2021-08-13] MEDS ORDERED: Protamine Sulfate 50 MG/5 ML VIAL ONE ×2 (10:19→15:51)
[2021-08-13] MEDS ORDERED: Isoproterenol 0.2 MG/1 ML AMP ONE (10:19)
[2021-08-13] MEDS ORDERED: ePHEDrine 50 MG/ML VIAL ONE (11:08)
[2021-08-13] MEDS ORDERED: Lidocaine 1% PF 5 ML VIAL ONE (11:08)
[2021-08-13] MEDS ORDERED: Rocuronium Bromide 10 MG/ML (10ML VIAL) ONE (11:08)
[2021-08-13] MEDS ORDERED: PHENYLEPHRINE-NS 100 MCG/ML 10 ML SYRINGE ONE ×3 (11:08→15:51)
[2021-08-13] MEDS ORDERED: Dexamethasone 20 MG/5 ML VIAL ONE (11:08)
[2021-08-13] MEDS ORDERED: PROPOFOL 200 MG/20 ML VIAL ONE (11:08)
[2021-08-13] MEDS ORDERED: Dexmedetomidine 200 MCG/2 ML VIAL ONE (11:53)
[2021-08-13] MEDS ORDERED: Fentanyl 100 MCG/2 ML VIAL ONE (11:53)
[2021-08-13] MEDS ORDERED: Ketorolac Tromethamine 30 MG/ML VIAL IVP PRN (12:24)
[2021-08-13] MEDS ORDERED: Amiodarone 150 MG/3 ML VIAL ONE (15:33)
[2021-08-13] MEDS ORDERED: Dextrose 5% in Water 1,000 ML IV PRN ×2 (16:45→16:58)
[2021-08-13] MEDS ORDERED: HumaLOG 300 UNITS/3 ML VIAL SC PRN ×2 (16:45)
[2021-08-13] MEDS ORDERED: Dextrose 50% Abboject 50 ML SYRINGE IVP PRN (16:45)
[2021-08-13] MEDS ORDERED: HYDROcodone/Acetaminophen 5/325 mg Tablet PO PRN (16:58)
[2021-08-13] MEDS ORDERED: Melatonin 3 MG TAB PO PRN (16:58)
[2021-08-13] MEDS ORDERED: Non-Formulary Item 1 EACH (Semaglutide [Ozempic] 1 MG/0.75 ML Pen.Injctr) SQ SCH (17:15)
[2021-08-13] MEDS: Insulin Glargine 30 UNITS/0.3 ML VIAL SC SCH (20:27)
[2021-08-13] MEDS ORDERED: Apixaban 5 MG TAB PO SCH (21:00)
[2021-08-13] MEDS ORDERED: Gabapentin 300 MG CAP PO SCH ×2 (21:00)
[2021-08-13] MEDS ORDERED: Atorvastatin Calcium 20 MG TAB PO SCH ×2 (21:00)
[2021-08-13] MEDS ORDERED: Insulin Glargine 30 UNITS/0.3 ML VIAL SC SCH (21:00)
[2021-08-14] MEDS ORDERED: Levothyroxine Sodium 25 MCG TAB PO SCH ×2 (06:00)
[2021-08-14 07:46] VITALS: BP 141/64; TEMP 98.2
[2021-08-14] MEDS ORDERED: Losartan 25 MG TAB PO SCH (09:00)
[2021-08-14] MEDS ORDERED: Apixaban 5 MG TAB PO SCH (09:00)
[2021-08-14] MEDS ORDERED: Digoxin 0.25 MG TAB PO SCH ×2 (09:00)
[2021-08-14] MEDS ORDERED: Hydrochlorothiazide 25 MG TAB PO SCH (09:00)
[2021-08-14] MEDS ORDERED: [UNRECOGNIZED DRUG - OTHER] PO SCH (09:00)
[2021-08-14] MEDS ORDERED: IRBESARTAN PO SCH (09:00)
[2021-08-14] MEDS ORDERED: Gabapentin 400 MG CAP PO SCH (09:00)
[2021-08-14] MEDS ORDERED: HYDROCHLOROTHIAZIDE PO SCH (09:00)
[2021-08-14] MEDS ORDERED: Gabapentin 300 MG CAP PO SCH (09:00)
[2021-08-14] MEDS: Insulin Glargine 30 UNITS/0.3 ML VIAL SC SCH (11:11)
[2021-08-19] MEDS ORDERED: OZEMPIC SC SCH (09:00)
== END 2021-08-14 11:55 | disposition home or self-care (01) ==
LOC: SDC 09:20 → 2SW 16:31
PROVIDERS: ADMIT Internal Medicine Cardiovascular Disease; ATTEND Internal Medicine Cardiovascular Disease
PROC: 02583ZZ Destruction of Conduction Mechanism, Percutaneous Approach (ICD-10-PCS; principal; 2021-08-13)
PROC: 02K83ZZ Map Conduction Mechanism, Percutaneous Approach (ICD-10-PCS; 2021-08-13)
PROC: 4A023FZ Measurement of Cardiac Rhythm, Percutaneous Approach (ICD-10-PCS; 2021-08-13)
PROC: 4A0234Z Measurement of Cardiac Electrical Activity, Percutaneous Approach (ICD-10-PCS; 2021-08-13)
DX: I48.0 Paroxysmal atrial fibrillation (principal); I48.3 Typical atrial flutter; I25.119 Atherosclerotic heart disease of native coronary artery with unspecified angina pectoris; R55 Syncope and collapse; I47.1 Supraventricular tachycardia; E03.9 Hypothyroidism, unspecified; I10 Essential (primary) hypertension; E11.9 Type 2 diabetes mellitus without complications; E78.5 Hyperlipidemia, unspecified; Z87.891 Personal history of nicotine dependence; Z79.01 Long term (current) use of anticoagulants; Z79.4 Long term (current) use of insulin; Z79.890 Hormone replacement therapy; Z79.899 Other long term (current) drug therapy; Z95.0 Presence of cardiac pacemaker; Z95.5 Presence of coronary angioplasty implant and graft
CPT/HCPCS: 36416; 85347; 93005; 93010; 93613; 93623; 93655; 93656; 93657; 93662; C1732; C1759; C1760; G0378; J0282; J1100; J1644; J1815; J2704; J2720; J3010; J3490

== ENCOUNTER 2021-10-07 12:37 | Emergency (ER) | payer MEDICARE | END 2021-10-07 14:11 | disposition home or self-care (01) | LOC: ERS 12:37 | DX: U07.1 COVID-19 (principal); Z87.891 Personal history of nicotine dependence; I10 Essential (primary) hypertension; E11.9 Type 2 diabetes mellitus without complications; Z79.899 Other long term (current) drug therapy; Z79.84 Long term (current) use of oral hypoglycemic drugs; Z79.4 Long term (current) use of insulin; Z79.01 Long term (current) use of anticoagulants | CPT/HCPCS: 99283; U0003; U0005 ==

== ENCOUNTER 2022-01-07 21:39 | Inpatient (IN) | payer MEDICARE ==
[2022-01-07] MEDS ORDERED: HYDROcodone/Acetaminophen 10/325 mg Tablet ONE (23:50)
[2022-01-08] MEDS ORDERED: Aspirin 325 MG TAB ONE (04:32)
[2022-01-08] MEDS ORDERED: Cyclobenzaprine 10 MG TAB ONE (05:47)
[2022-01-08] MEDS ORDERED: Dexamethasone 10 MG/ML VIAL ONE (05:47)
[2022-01-08 08:15] LABS: #Eosinphils 0.1 thou/uL (0.0-0.7); #Lymphocytes 1.3 thou/uL (1.20-3.40); #Monocytes 0.5 thou/uL (0.11-0.59); #Neutrophils 7.3 thou/uL (1.40-6.50); %Basophils 0.4 % (0.0-1.0); %Eosinophils 1.3 % (0.0-10.0); %Lymphocytes 13.7 % (21.0-51.0); %Monocytes 5.1 % (0.0-10.0); %Neutrophils 79.5 % (42.0-75.0); Hemoglobin 12.1 g/dL (14.0-18.0); Mean Corpuscular Hemoglobin 31.8 pg (27.0-31.0); Mean Corpuscular Volume 93.5 fL (78.0-98.0); Mean Platelet Volume 9.1 fL (7.4-10.4); Platelet Count 129 thou/uL (130-400); Red Blood Cell (RBC) Count 3.82 mill/uL (4.70-6.10); White Blood Cell (WBC) Count 9.1 thou/uL (4.8-10.8)
[2022-01-08 08:33] LABS: ALT (SGPT) 23 U/L (8-55); AST (SGOT) 22 U/L (5-34); Albumin 3.8 g/dL (3.4-4.8); Alkaline Phosphatase 78 U/L (40-110); Anion Gap 11 mmol/L (10-20); BUN (Urea Nitrogen) 18 mg/dL (8.4-25.7); Bilirubin, Total 0.8 mg/dL (0.2-1.2); Calc. Creatinine Clearance 0 mL/min (70-130); Calcium 9.2 mg/dL (7.8-10.44); Carbon Dioxide 25 mmol/L (23-31); Chloride 102 mmol/L (98-107); Estimated GFR 93; Globulin 2.4 g/dL (2.4-3.5); Glucose 134 mg/dL (83-110); Potassium 4.3 mmol/L (3.5-5.1); Protein, Total 6.2 g/dL (5.8-8.1); Sodium 134 mmol/L (136-145)
[2022-01-08] MEDS ORDERED: Cyclobenzaprine 10 MG TAB PO PRN (09:11)
[2022-01-08] MEDS ORDERED: Dextrose 50% Abboject 50 ML SYRINGE SLOW IVP PRN (09:12)
[2022-01-08] MEDS ORDERED: Dextrose 5% in Water 1,000 ML IV PRN (09:12)
[2022-01-08] MEDS ORDERED: Acetaminophen 325 MG TAB PO PRN (09:19)
[2022-01-08] MEDS ORDERED: Senokot S 8.6-50 MG TAB PO PRN (09:19)
[2022-01-08] MEDS ORDERED: Ondansetron PF 4 MG/2 ML Vial IVP PRN (09:19)
[2022-01-08] MEDS ORDERED: Ondansetron ODT 4 MG TAB PO PRN (09:19)
[2022-01-08] MEDS: HYDROcodone/Acetaminophen 7.5/325 mg Tablet PO PRN ×4 (10:33→23:55)
[2022-01-08] MEDS: Sodium Chloride 0.9% 1,000 ML IV SCH ×2 (10:34→23:57)
[2022-01-08 10:54] VITALS: BMI 29.3
[2022-01-08] MEDS ORDERED: hydrALAZINE 20 MG/ML VIAL SLOW IVP PRN (14:25)
[2022-01-08] MEDS ORDERED: Furosemide 40 MG TAB PO PRN (14:27)
[2022-01-08] MEDS: HumaLOG 300 UNITS/3 ML VIAL SC PRN ×2 (16:26→20:59)
[2022-01-08] MEDS: Apixaban 5 MG TAB PO SCH (20:58)
[2022-01-08] MEDS: Atorvastatin Calcium 10 MG TAB PO SCH (20:58)
[2022-01-08] MEDS: Gabapentin 400 MG CAP PO SCH (20:58)
[2022-01-08] MEDS: Famotidine 20 MG TAB PO SCH (20:58)
[2022-01-08] MEDS: Sotalol HCl 80 MG TAB PO SCH (20:58)
[2022-01-08] MEDS: Insulin Glargine 30 UNITS/0.3 ML VIAL SC SCH (20:59)
[2022-01-08] MEDS ORDERED: methylPREDNISolone Sod Succ 40 MG VIAL IVP SCH (21:00)
[2022-01-09] MEDS: Levothyroxine Sodium 25 MCG TAB PO SCH (05:24)
[2022-01-09] MEDS: HYDROcodone/Acetaminophen 7.5/325 mg Tablet PO PRN ×4 (05:25→20:19)
[2022-01-09 07:03] LABS: #Lymphocytes 1.5 thou/uL (1.20-3.40); #Monocytes 1.3 thou/uL (0.11-0.59); #Neutrophils 10.1 thou/uL (1.40-6.50); %Eosinophils 0.2 % (0.0-10.0); %Lymphocytes 11.6 % (21.0-51.0); %Monocytes 10.1 % (0.0-10.0); Hemoglobin 10.9 g/dL (14.0-18.0); Mean Corpuscular HGB CONC 33.3 g/dL (32.0-36.0); Mean Corpuscular Hemoglobin 31.1 pg (27.0-31.0); Mean Corpuscular Volume 93.4 fL (78.0-98.0); Mean Platelet Volume 9.1 fL (7.4-10.4); Platelet Count 142 thou/uL (130-400); RBC Distribution Width 14.2 % (11.5-14.5); White Blood Cell (WBC) Count 12.9 thou/uL (4.8-10.8)
[2022-01-09 07:20] LABS: Anion Gap 11 mmol/L (10-20); BUN (Urea Nitrogen) 13 mg/dL (8.4-25.7); Calc. Creatinine Clearance 130 mL/min (70-130); Calcium 8.9 mg/dL (7.8-10.44); Carbon Dioxide 24 mmol/L (23-31); Chloride 105 mmol/L (98-107); Estimated GFR 95; Glucose 145 mg/dL (83-110); Potassium 4.2 mmol/L (3.5-5.1); Sodium 136 mmol/L (136-145)
[2022-01-09] MEDS: Magnesium Oxide 250 MG TAB PO SCH (08:32)
[2022-01-09] MEDS: Gabapentin 400 MG CAP PO SCH ×2 (08:32→20:19)
[2022-01-09] MEDS: Digoxin 0.25 MG TAB PO SCH (08:32)
[2022-01-09] MEDS: Famotidine 20 MG TAB PO SCH (08:32)
[2022-01-09] MEDS: Insulin Glargine 30 UNITS/0.3 ML VIAL SC SCH ×2 (08:33→20:20)
[2022-01-09] MEDS: Cholecalciferol 1,000 UNITS (25 MCG) TAB PO SCH (08:33)
[2022-01-09] MEDS: Apixaban 5 MG TAB PO SCH (08:33)
[2022-01-09] MEDS ORDERED: Dexamethasone 4 mg/ml Vial SLOW IVP SCH (09:00)
[2022-01-09] MEDS: Sotalol HCl 80 MG TAB PO SCH ×2 (09:25→20:19)
[2022-01-09] MEDS ORDERED: Morphine 2 MG/ML VIAL SLOW IVP PRN (15:56)
[2022-01-09] MEDS: Cyclobenzaprine 10 MG TAB PO SCH ×2 (16:09→20:19)
[2022-01-09] MEDS: HumaLOG 300 UNITS/3 ML VIAL SC PRN ×2 (17:47→20:20)
[2022-01-09] MEDS ORDERED: metFORMIN 500 MG TAB PO SCH (18:15)
[2022-01-09 18:40] LABS: INR-International Normal Ratio 1.1; PTT 34.8 sec (22.9-36.1); Prothrombin Time 14.1 sec (12.0-14.7)
[2022-01-09] MEDS: tiZANidine HCl 4 MG TAB PO SCH (20:18)
[2022-01-09] MEDS: Atorvastatin Calcium 10 MG TAB PO SCH (20:19)
[2022-01-10] MEDS: Levothyroxine Sodium 25 MCG TAB PO SCH (05:55)
[2022-01-10] MEDS: HYDROcodone/Acetaminophen 7.5/325 mg Tablet PO PRN ×3 (05:55→18:10)
[2022-01-10 06:41] LABS: #Eosinphils 0.1 thou/uL (0.0-0.7); #Lymphocytes 1.3 thou/uL (1.20-3.40); #Monocytes 1.2 thou/uL (0.11-0.59); #Neutrophils 7.6 thou/uL (1.40-6.50); %Basophils 0.1 % (0.0-1.0); %Eosinophils 0.5 % (0.0-10.0); %Lymphocytes 12.6 % (21.0-51.0); %Monocytes 11.6 % (0.0-10.0); %Neutrophils 75.2 % (42.0-75.0); Hemoglobin 10.4 g/dL (14.0-18.0); Mean Corpuscular HGB CONC 32.4 g/dL (32.0-36.0); Mean Corpuscular Hemoglobin 30.8 pg (27.0-31.0); Mean Corpuscular Volume 95.1 fL (78.0-98.0); Mean Platelet Volume 9.3 fL (7.4-10.4); Platelet Count 145 thou/uL (130-400); RBC Distribution Width 14.2 % (11.5-14.5); Red Blood Cell (RBC) Count 3.37 mill/uL (4.70-6.10); White Blood Cell (WBC) Count 10.1 thou/uL (4.8-10.8)
[2022-01-10 06:55] LABS: Anion Gap 11 mmol/L (10-20); BUN (Urea Nitrogen) 16 mg/dL (8.4-25.7); Calc. Creatinine Clearance 113 mL/min (70-130); Calcium 9.1 mg/dL (7.8-10.44); Carbon Dioxide 27 mmol/L (23-31); Chloride 102 mmol/L (98-107); Estimated GFR 91; Glucose 143 mg/dL (83-110); Potassium 4.4 mmol/L (3.5-5.1); Sodium 136 mmol/L (136-145)
[2022-01-10] MEDS: Cholecalciferol 1,000 UNITS (25 MCG) TAB PO SCH (08:06)
[2022-01-10] MEDS: Magnesium Oxide 250 MG TAB PO SCH (08:06)
[2022-01-10] MEDS: Gabapentin 400 MG CAP PO SCH ×2 (08:06→21:56)
[2022-01-10] MEDS: metFORMIN 500 MG TAB PO SCH ×2 (08:06→17:47)
[2022-01-10] MEDS: Cyclobenzaprine 10 MG TAB PO SCH ×3 (08:06→21:55)
[2022-01-10] MEDS: tiZANidine HCl 4 MG TAB PO SCH (08:06)
[2022-01-10] MEDS: Sotalol HCl 80 MG TAB PO SCH ×2 (08:07→21:55)
[2022-01-10] MEDS: Digoxin 0.25 MG TAB PO SCH (08:07)
[2022-01-10] MEDS: Insulin Glargine 30 UNITS/0.3 ML VIAL SC SCH ×2 (08:07→20:40)
[2022-01-10] MEDS: Atorvastatin Calcium 10 MG TAB PO SCH (21:59)
[2022-01-11] MEDS: tiZANidine HCl 4 MG TAB PO SCH ×3 (00:29→22:59)
[2022-01-11] MEDS: HYDROcodone/Acetaminophen 7.5/325 mg Tablet PO PRN ×2 (02:59→08:30)
[2022-01-11 05:54] LABS: Glucose 79 mg/dL (83-110)
[2022-01-11] MEDS: Levothyroxine Sodium 25 MCG TAB PO SCH (06:18)
[2022-01-11] MEDS: Insulin Glargine 30 UNITS/0.3 ML VIAL SC SCH ×2 (11:12→20:24)
[2022-01-11] MEDS: metFORMIN 500 MG TAB PO SCH ×2 (11:12→16:32)
[2022-01-11] MEDS: Digoxin 0.25 MG TAB PO SCH (11:16)
[2022-01-11] MEDS: Cholecalciferol 1,000 UNITS (25 MCG) TAB PO SCH (11:17)
[2022-01-11] MEDS: Gabapentin 400 MG CAP PO SCH ×2 (11:18→20:20)
[2022-01-11] MEDS: Cyclobenzaprine 10 MG TAB PO SCH ×4 (11:18→20:20)
[2022-01-11] MEDS: Sotalol HCl 80 MG TAB PO SCH ×2 (11:22→20:21)
[2022-01-11] MEDS: Magnesium Oxide 250 MG TAB PO SCH (11:22)
[2022-01-11] MEDS: Atorvastatin Calcium 10 MG TAB PO SCH (20:20)
[2022-01-11] MEDS: Transdermal Patch Removal TOP SCH (21:00)
[2022-01-12] MEDS: Levothyroxine Sodium 25 MCG TAB PO SCH (06:12)
[2022-01-12] MEDS ORDERED: Senokot S 8.6-50 MG TAB PO PRN (07:00)
[2022-01-12 07:17] LABS: #Eosinphils 0.3 thou/uL (0.0-0.7); #Lymphocytes 2.1 thou/uL (1.20-3.40); #Monocytes 1.2 thou/uL (0.11-0.59); #Neutrophils 5.4 thou/uL (1.40-6.50); %Basophils 0.2 % (0.0-1.0); %Eosinophils 3.5 % (0.0-10.0); %Lymphocytes 23.7 % (21.0-51.0); %Monocytes 12.7 % (0.0-10.0); %Neutrophils 59.9 % (42.0-75.0); Hemoglobin 11.1 g/dL (14.0-18.0); Mean Corpuscular HGB CONC 32.7 g/dL (32.0-36.0); Mean Corpuscular Volume 94.7 fL (78.0-98.0); Mean Platelet Volume 9.3 fL (7.4-10.4); Platelet Count 143 thou/uL (130-400); RBC Distribution Width 14.6 % (11.5-14.5); Red Blood Cell (RBC) Count 3.58 mill/uL (4.70-6.10)
[2022-01-12 07:27] LABS: Anion Gap 13 mmol/L (10-20); BUN (Urea Nitrogen) 17 mg/dL (8.4-25.7); Calc. Creatinine Clearance 122 mL/min (70-130); Calcium 9.6 mg/dL (7.8-10.44); Carbon Dioxide 28 mmol/L (23-31); Chloride 99 mmol/L (98-107); Estimated GFR 94; Glucose 146 mg/dL (83-110); Potassium 4.5 mmol/L (3.5-5.1); Sodium 135 mmol/L (136-145)
[2022-01-12] MEDS: Insulin Glargine 30 UNITS/0.3 ML VIAL SC SCH ×2 (08:57→20:51)
[2022-01-12] MEDS: Magnesium Oxide 250 MG TAB PO SCH (09:00)
[2022-01-12] MEDS: Digoxin 0.25 MG TAB PO SCH (09:00)
[2022-01-12] MEDS: Gabapentin 400 MG CAP PO SCH ×2 (09:01→20:48)
[2022-01-12] MEDS: metFORMIN 500 MG TAB PO SCH ×2 (09:02→16:34)
[2022-01-12] MEDS: Cholecalciferol 1,000 UNITS (25 MCG) TAB PO SCH (09:03)
[2022-01-12] MEDS: Cyclobenzaprine 10 MG TAB PO SCH ×3 (09:03→20:48)
[2022-01-12] MEDS: tiZANidine HCl 4 MG TAB PO SCH ×2 (09:03→20:49)
[2022-01-12] MEDS: Lidocaine 5% Patch TD SCH (09:07)
[2022-01-12] MEDS: Sotalol HCl 80 MG TAB PO SCH ×2 (09:07→20:47)
[2022-01-12] MEDS: HYDROcodone/Acetaminophen 7.5/325 mg Tablet PO PRN ×2 (10:36→20:50)
[2022-01-12] MEDS: Atorvastatin Calcium 10 MG TAB PO SCH (20:48)
[2022-01-12] MEDS: Transdermal Patch Removal TOP SCH (20:49)
[2022-01-13] MEDS: Levothyroxine Sodium 25 MCG TAB PO SCH (06:24)
[2022-01-13] MEDS: Magnesium Oxide 250 MG TAB PO SCH (08:41)
[2022-01-13] MEDS: Digoxin 0.25 MG TAB PO SCH (08:41)
[2022-01-13] MEDS: tiZANidine HCl 4 MG TAB PO SCH ×2 (08:42→20:43)
[2022-01-13] MEDS: Cyclobenzaprine 10 MG TAB PO SCH ×3 (08:42→20:43)
[2022-01-13] MEDS: Gabapentin 400 MG CAP PO SCH ×2 (08:42→20:43)
[2022-01-13] MEDS: metFORMIN 500 MG TAB PO SCH ×2 (08:43→16:04)
[2022-01-13] MEDS: Cholecalciferol 1,000 UNITS (25 MCG) TAB PO SCH (08:43)
[2022-01-13] MEDS: Sotalol HCl 80 MG TAB PO SCH ×2 (08:46→20:43)
[2022-01-13] MEDS: Lidocaine 5% Patch TD SCH (09:04)
[2022-01-13] MEDS: Insulin Glargine 30 UNITS/0.3 ML VIAL SC SCH ×2 (09:04→20:44)
[2022-01-13] MEDS: HYDROcodone/Acetaminophen 7.5/325 mg Tablet PO PRN (20:43)
[2022-01-13] MEDS: Atorvastatin Calcium 10 MG TAB PO SCH (20:43)
[2022-01-13] MEDS: Transdermal Patch Removal TOP SCH (20:44)
[2022-01-14] MEDS: Levothyroxine Sodium 25 MCG TAB PO SCH (05:22)
[2022-01-14 08:11] LABS: #Basophils 0.1 thou/uL (0.0-0.2); #Eosinphils 0.3 thou/uL (0.0-0.7); #Lymphocytes 2.3 thou/uL (1.20-3.40); #Monocytes 1.2 thou/uL (0.11-0.59); #Neutrophils 6.4 thou/uL (1.40-6.50); %Basophils 0.8 % (0.0-1.0); %Eosinophils 3.1 % (0.0-10.0); %Lymphocytes 22.2 % (21.0-51.0); %Monocytes 11.7 % (0.0-10.0); %Neutrophils 62.3 % (42.0-75.0); Hemoglobin 11.9 g/dL (14.0-18.0); Mean Corpuscular HGB CONC 33.4 g/dL (32.0-36.0); Mean Corpuscular Hemoglobin 32.1 pg (27.0-31.0); Mean Corpuscular Volume 96.1 fL (78.0-98.0); Platelet Count 170 thou/uL (130-400); RBC Distribution Width 14.9 % (11.5-14.5); Red Blood Cell (RBC) Count 3.71 mill/uL (4.70-6.10); White Blood Cell (WBC) Count 10.3 thou/uL (4.8-10.8)
[2022-01-14 08:27] LABS: Anion Gap 14 mmol/L (10-20); BUN (Urea Nitrogen) 18 mg/dL (8.4-25.7); Calc. Creatinine Clearance 120 mL/min (70-130); Calcium 9.7 mg/dL (7.8-10.44); Carbon Dioxide 24 mmol/L (23-31); Chloride 97 mmol/L (98-107); Estimated GFR 93; Glucose 136 mg/dL (83-110); Potassium 4.2 mmol/L (3.5-5.1); Sodium 131 mmol/L (136-145)
[2022-01-14] MEDS: Cholecalciferol 1,000 UNITS (25 MCG) TAB PO SCH (09:04)
[2022-01-14] MEDS: metFORMIN 500 MG TAB PO SCH ×2 (09:04→17:39)
[2022-01-14] MEDS: Cyclobenzaprine 10 MG TAB PO SCH ×3 (09:04→20:32)
[2022-01-14] MEDS: Digoxin 0.25 MG TAB PO SCH (09:05)
[2022-01-14] MEDS: Gabapentin 400 MG CAP PO SCH ×2 (09:05→20:32)
[2022-01-14] MEDS: Insulin Glargine 30 UNITS/0.3 ML VIAL SC SCH ×2 (09:06→20:33)
[2022-01-14] MEDS: Lidocaine 5% Patch TD SCH (09:07)
[2022-01-14] MEDS: Sotalol HCl 80 MG TAB PO SCH ×2 (09:07→20:32)
[2022-01-14] MEDS: Magnesium Oxide 250 MG TAB PO SCH (09:07)
[2022-01-14] MEDS: tiZANidine HCl 4 MG TAB PO SCH ×2 (09:08→20:32)
[2022-01-14] MEDS: Atorvastatin Calcium 10 MG TAB PO SCH (20:32)
[2022-01-15] MEDS: Levothyroxine Sodium 25 MCG TAB PO SCH (05:54)
[2022-01-15] MEDS: Transdermal Patch Removal TOP SCH ×2 (05:55→21:56)
[2022-01-15] MEDS: metFORMIN 500 MG TAB PO SCH ×2 (08:46→16:04)
[2022-01-15] MEDS: Cyclobenzaprine 10 MG TAB PO SCH ×3 (08:47→21:54)
[2022-01-15] MEDS: Digoxin 0.25 MG TAB PO SCH (08:47)
[2022-01-15] MEDS: Cholecalciferol 1,000 UNITS (25 MCG) TAB PO SCH (08:47)
[2022-01-15] MEDS: Gabapentin 400 MG CAP PO SCH ×2 (08:48→21:54)
[2022-01-15] MEDS: Lidocaine 5% Patch TD SCH (08:49)
[2022-01-15] MEDS: Insulin Glargine 30 UNITS/0.3 ML VIAL SC SCH ×2 (08:49→21:55)
[2022-01-15] MEDS: Sotalol HCl 80 MG TAB PO SCH ×2 (08:51→21:54)
[2022-01-15] MEDS: tiZANidine HCl 4 MG TAB PO SCH ×2 (08:51→21:54)
[2022-01-15] MEDS: Magnesium Oxide 250 MG TAB PO SCH (08:51)
[2022-01-15] MEDS: Atorvastatin Calcium 10 MG TAB PO SCH (21:54)
[2022-01-16] MEDS: HYDROcodone/Acetaminophen 7.5/325 mg Tablet PO PRN (04:40)
[2022-01-16] MEDS: Levothyroxine Sodium 25 MCG TAB PO SCH (06:18)
[2022-01-16] MEDS: Lidocaine 5% Patch TD SCH (08:40)
[2022-01-16] MEDS: Digoxin 0.25 MG TAB PO SCH (08:41)
[2022-01-16] MEDS: Sotalol HCl 80 MG TAB PO SCH (08:41)
[2022-01-16] MEDS: Cyclobenzaprine 10 MG TAB PO SCH ×2 (08:41→14:08)
[2022-01-16] MEDS: Gabapentin 400 MG CAP PO SCH (08:42)
[2022-01-16] MEDS: tiZANidine HCl 4 MG TAB PO SCH (08:42)
[2022-01-16] MEDS: Cholecalciferol 1,000 UNITS (25 MCG) TAB PO SCH (08:42)
[2022-01-16] MEDS: metFORMIN 500 MG TAB PO SCH (08:42)
[2022-01-16] MEDS: Insulin Glargine 30 UNITS/0.3 ML VIAL SC SCH ×2 (08:43→08:47)
[2022-01-16] MEDS: Magnesium Oxide 250 MG TAB PO SCH (08:43)
[2022-01-16 14:52] VITALS: BP 133/74; TEMP 97.6
== END 2022-01-16 15:23 | DRG 605 ==
LOC: ERS 21:39 → T4-B 01-08 09:24 → OBSVTOIN 01-09 17:11
PROVIDERS: ADMIT Internal Medicine; ATTEND Internal Medicine
DX: S30.0XXA Contusion of lower back and pelvis, initial encounter (principal); M46.26 Osteomyelitis of vertebra, lumbar region; E87.1 Hypo-osmolality and hyponatremia; I25.10 Atherosclerotic heart disease of native coronary artery without angina pectoris; M10.9 Gout, unspecified; E11.9 Type 2 diabetes mellitus without complications; I10 Essential (primary) hypertension; I48.0 Paroxysmal atrial fibrillation; E03.9 Hypothyroidism, unspecified; E78.5 Hyperlipidemia, unspecified; Z60.2 Problems related to living alone; W18.39XA Other fall on same level, initial encounter; D64.9 Anemia, unspecified; D69.6 Thrombocytopenia, unspecified; Z95.0 Presence of cardiac pacemaker; Z95.5 Presence of coronary angioplasty implant and graft; Z79.899 Other long term (current) drug therapy; Z79.4 Long term (current) use of insulin; Z79.01 Long term (current) use of anticoagulants; Z79.890 Hormone replacement therapy; Z79.84 Long term (current) use of oral hypoglycemic drugs; Z90.49 Acquired absence of other specified parts of digestive tract; Z87.891 Personal history of nicotine dependence; Z82.3 Family history of stroke
CPT/HCPCS: 36415; 36416; 72131; 72190; 72192; 80048; 80053; 82947; 85025; 85610; 85730; 87811; 96372; 96374; G0378; J0360; J1100; J1815; J7050; U0003; U0005

== ENCOUNTER 2022-02-06 08:04 | Outpatient (CLI) | payer MEDICARE ==
[2022-02-06] MEDS ORDERED: Iopamidol 370 76% 100 ML VIAL ONE (11:49)
== END 2022-02-06 08:05 | disposition home or self-care (01) ==
LOC: BICCT 08:04
PROVIDERS: ATTEND Physician Assistant Medical
DX: Z12.11 Encounter for screening for malignant neoplasm of colon (principal); K86.2 Cyst of pancreas
CPT/HCPCS: 74170; Q9967

== ENCOUNTER 2022-10-10 10:15 | Outpatient (CLI) | payer MEDICARE | END 2022-10-10 10:16 | disposition home or self-care (01) | LOC: RAD 10:15 | PROVIDERS: ATTEND Neurological Surgery | DX: M47.26 Other spondylosis with radiculopathy, lumbar region (principal); R20.0 Anesthesia of skin | CPT/HCPCS: 72120 ==